=== PATIENT | male | born 1965 | race Caucasian/White ===

== ENCOUNTER 2022-01-31 00:24 | Emergency (ER) | payer OTHER ==
[~2022-01-31] VITALS: Ht 175.3 cm; Wt 99.8 kg
[2022-01-31 00:45] VITALS: BP_SYST 148
--- NOTE | 2022-01-31 00:45 | NUR ---
Patient ambulatory with family to bed 4 for evaluation and treatment
--- NOTE | 2022-01-31 00:50 | NUR ---
ER at bedside examining patient.
--- NOTE | 2022-01-31 01:48 | NUR ---
PT BIB W C/O FALL DUE TO ETOH INTOXICATION. PT STAtes he slipped and fell FALLING ON HIS FACE. DENIES LOC, N/V, MUR[place], PAIN AND BLURRY VISION. HEMATOMA TO LEFT EYE SKIN INTACT. AT BEDSIDE.
--- NOTE | 2022-01-31 02:17 | NUR ---
Patient does not wish to proceed with medical care recommended by [facility]. Patient given information related to possible complications, up to and including , which could occur as a result of leaving hospital at this time. Patient verbalizes understanding of risks involved leaving against medical advice. Patient has signed AMA form.
== END 2022-01-31 02:16 | disposition left against medical advice (07) ==
LOC: SED 00:24
DX: S02.2XXA Fracture of nasal bones, initial encounter for closed fracture (principal); S00.83XA Contusion of other part of head, initial encounter; F10.129 Alcohol abuse with intoxication, unspecified; Z79.899 Other long term (current) drug therapy; W01.0XXA Fall on same level from slipping, tripping and stumbling without subsequent striking against object, initial encounter; Y93.89 Activity, other specified; Y92.89 Other specified places as the place of occurrence of the external cause; Y99.8 Other external cause status; Y90.6 Blood alcohol level of 120-199 mg/100 ml
CPT/HCPCS: 70450-TC; 70486-TC; 76376; 99284